=== PATIENT | male | born 1950 | race Caucasian/White ===

== ENCOUNTER → 2017-06-18 | Day surgery (SDC) | payer MEDICARE, BC ==
[~2017-06-18] MED LIST: Dextrose 5%-0.45% NaCl 1,000 ML IV SCH; Midazolam 1 MG/ML 2 ML SDV IV ONE; Midazolam 1 MG/ML 2 ML SDV ONE; Sodium Chloride 0.9% 10 ML Syringe FLUSH PRN; fentaNYL 100 MCG/2 ML SDV IV ONE; fentaNYL 100 MCG/2 ML SDV ONE
--- NOTE | 2017-06-18 09:41 | OR ---
DATE: 06/18/2017 PROCEDURES: Total colonoscopy, narrow-band imaging, snare polypectomy, and multiple pinch biopsies. INSTRUMENT USED: CF-H180 AL Olympus video colonoscope. PREMEDICATIONS: Fentanyl 100 mcg intravenous, Versed 4 mg intravenous. Nasal O2 cannula. The procedure was done under pulse oximetry, BP recording, and case monitor. INDICATION: Screening colonoscopic examination is done for detection of any polypoid lesions and removal, endoscopic hemostasis therapy if needed. DESCRIPTION OF PROCEDURE: Initial rectal exam was unremarkable. Rigid anoscopy was normal. The colonoscope was passed with ease. In the proximal sigmoid colon, 1-cm sized, benign-appearing, pedunculated polyp was noted. NBI views were obtained. Photographs were taken. Snare polypectomy was done. The polyp was retrieved and sent for histopathology. Polypectomy site was found to be clean. The scope was passed with ease up to the ileocecal area. Photographs were taken of the cecum identified by prominent but benign-appearing ileocecal folds. NBI views were obtained. Multiple pinch biopsies were obtained from the prominent folds and sent for histopathology. No active bleeding was noted from any of the visualized areas at the commencement of the examination. No stricture. No vascular ectasia. No large isolated ulcerations seen. No evidence of diffuse inflammatory bowel disease in the form of friability, contact bleeding, or ulcerations. Probing the proximal sides of folds and flexures, using adequate distention and clearing up the stool material, withdrawal of the scope was made. Ebyik-lb-[id number] time over 6 minutes. No bleeding was noted from any of the visualized areas at the completion of examination. IMPRESSION: Colonic polyp. The patient tolerated the procedure well. [facility] /[id number]
== END ==
LOC: DL.ENDO 06:43
PROVIDERS: ATTEND Internal Medicine Gastroenterology
DX: Z12.11 Encounter for screening for malignant neoplasm of colon (principal); D12.5 Benign neoplasm of sigmoid colon; K63.5 Polyp of colon; E78.00 Pure hypercholesterolemia, unspecified; Z79.899 Other long term (current) drug therapy; Z83.79 Family history of other diseases of the digestive system
CPT/HCPCS: 45380; 45385; J2250; J3010; J7042

== ENCOUNTER 2020-02-10 07:20 | Day surgery (SDC) | payer MEDICARE, BC ==
[2020-02-10] MEDS ORDERED: Moxifloxacin 0.5% Ophth Soln 3 ML Bottle EYERT ONE (07:30)
[2020-02-10] MEDS ORDERED: Sodium Chloride 0.9% 10 ML Syringe FLUSH PRN (07:30)
[2020-02-10] MEDS ORDERED: Cataract Ophth Solution EYERT ONE (07:30)
[2020-02-10] MEDS ORDERED: Tropicamide 1% Ophth Soln 15 ML Bottle EYERT ONE (07:30)
[2020-02-10] MEDS ORDERED: Ondansetron 4 MG/2 ML SDV IVPUSH PRN (07:30)
[2020-02-10] MEDS ORDERED: Acetaminophen 325 MG Tab PO PRN (07:30)
[2020-02-10] MEDS ORDERED: Povidone-Iodine 5% Sterile Ophth Soln 30 ML Bottle EYERT ONE ×2 (07:30→09:44)
[2020-02-10] MEDS ORDERED: Proparacaine 0.5% Ophth Soln 15 ML Bottle EYERT ONE (07:30)
[2020-02-10] MEDS ORDERED: Phenylephrine 10% Ophth Soln 5 ML Bot EYERT PRN (07:30)
[2020-02-10] MEDS ORDERED: Timolol Maleate 0.5% Ophth Soln 5 ML Bottle EYERT ONE (07:30)
[2020-02-10] MEDS ORDERED: Lidocaine 1% 30 ML SDV ONE (09:44)
[2020-02-10] MEDS ORDERED: Tetracaine HCl/PF 0.5% 4 ML Bottle EYERT ONE (09:44)
[2020-02-10] MEDS ORDERED: Apraclonidine 0.5% Ophth Soln 5 ML Bot EYERT ONE (09:44)
[2020-02-10] MEDS ORDERED: Vancomycin 500 MG SDV EYERT ONE (09:45)
[2020-02-10] MEDS ORDERED: Chondroitin Sulfate/Hyaluronate Sodium Ophth Inj 0.75 ML Syringe EYERT ONE (09:45)
[2020-02-10] MEDS ORDERED: Balanced Salt Solution Ophth Irrig 500 ML Bottle IOCULAR ONE (09:45)
[2020-02-10] MEDS ORDERED: Phenylephrine 10% Ophth Soln 5 ML Bot EYERT ONE (09:45)
[2020-02-10] MEDS ORDERED: Diclofenac Sodium 0.1% Ophth Soln 5 ML Bottle EYERT ONE (09:45)
[2020-02-10] MEDS ORDERED: Dexamethasone 4 MG/ML SDV IOCULAR ONE (09:56)
--- NOTE | 2020-02-11 07:48 | OR ---
DATE: 02/10/2020 PREOPERATIVE DIAGNOSIS: Visually significant mixed cataract, right eye. POSTOPERATIVE DIAGNOSIS: Visually significant mixed cataract, right eye. PROCEDURE: Extracapsular cataract extraction with intraocular lens implant, right eye. ANESTHESIA: Topical/local MAC. COMPLICATIONS: None. INDICATION: Mr. Tovar was seen in the clinic. Examination revealed visually significant mixed cataract. I explained options, offered cataract surgery, and I explained risks, including, but not limited to, infection, retinal detachment, loss of vision, need for additional surgery, and risks associated with anesthesia. We discussed implant options. He has requested a monofocal implant. We discussed refractive targets and he requested targeting mild myopia. He understands that he will likely need glasses for some activities especially near work. OPERATIVE DESCRIPTION: After informed consent was obtained and the risks, benefits, and alternatives were explained, the patient was brought to the operative suite and topical anesthesia was administered. The patient was then prepped and draped in the sterile fashion and attention was placed on the right eye. A sterile lid speculum was placed into the right eye to allow operative exposure. A full-thickness paracentesis was made in the temporal portion of the operative eye. Preservative-free lidocaine 0.1 mL was injected into the anterior chamber followed by viscoelastic. A full-thickness corneal incision was then made into the anterior chamber. A bent needle cystotome was used to create a small jeanne in the anterior capsule. The capsulorrhexis forceps was then used to create a 360-degree curvilinear capsulorrhexis. The nucleus was then removed using a phacoemulsification handpiece and the remaining cortical material was then removed with irrigation and aspiration handpiece. Following removal of the cortical material, the capsular bag was then inspected and noted to be free of any holes or tears. Viscoelastic was then injected into the capsular bag and the intraocular lens was inserted into the capsular bag. The viscoelastic material was then removed from both the anterior and posterior chambers and from behind the IOL. The lens and capsular bag were then reinspected. The IOL was well centered and the capsular bag intact. The wound and paracentesis sites were inspected and hydrated with balanced saline solution. Both were found to be self- sealing. The intraocular pressure was assessed digitally and found to be within normal range. A good red reflex was noted at the completion of the procedure. No complications occurred during the operation. At the completion of the procedure, Bing Enrique and Iopidine drops were placed into the operative eye. A sterile eye shield was placed over the operative eye and the patient was transported to the postoperative recovery area having tolerated the procedure well. Postoperative instructions were given along with a postoperative appointment. The patient was advised to call with any questions or concerns. [facility] /[id number]
== END 2020-02-10 11:05 | disposition home or self-care (01) ==
LOC: DL.SDS 07:20
PROVIDERS: ATTEND Ophthalmology
DX: H25.811 Combined forms of age-related cataract, right eye (principal); E78.5 Hyperlipidemia, unspecified; Z98.890 Other specified postprocedural states; Z79.899 Other long term (current) drug therapy; Z88.8 Allergy status to other drugs, medicaments and biological substances
CPT/HCPCS: 00142; J1100; J2001; J3370; V2632

== ENCOUNTER 2020-02-17 07:22 | Day surgery (SDC) | payer MEDICARE, BC ==
[~2020-02-17 07:22] MED LIST changes: -Dextrose 5%-0.45% NaCl 1,000 ML IV SCH; -Midazolam 1 MG/ML 2 ML SDV IV ONE; -Midazolam 1 MG/ML 2 ML SDV ONE; +Proparacaine 0.5% Ophth Soln 15 ML Bottle EYELF SCH; -Sodium Chloride 0.9% 10 ML Syringe FLUSH PRN; -fentaNYL 100 MCG/2 ML SDV IV ONE; -fentaNYL 100 MCG/2 ML SDV ONE
[2020-02-17] MEDS ORDERED: Dexamethasone 4 MG/ML SDV IV ONE (07:23)
[2020-02-17] MEDS ORDERED: Midazolam 1 MG/ML 2 ML SDV IV ONE (07:23)
[2020-02-17] MEDS ORDERED: Sodium Chloride 0.9% 10 ML Syringe IV ONE (07:23)
[2020-02-17] MEDS ORDERED: Acetaminophen 325 MG Tab PO PRN (07:30)
[2020-02-17] MEDS ORDERED: Sodium Chloride 0.9% 10 ML Syringe FLUSH PRN (07:30)
[2020-02-17] MEDS ORDERED: Povidone-Iodine 5% Sterile Ophth Soln 30 ML Bottle EYELF ONE ×2 (07:30→08:35)
[2020-02-17] MEDS ORDERED: Ondansetron 4 MG/2 ML SDV IVPUSH PRN (07:30)
[2020-02-17] MEDS ORDERED: Timolol Maleate 0.5% Ophth Soln 5 ML Bottle EYELF ONE (07:30)
[2020-02-17] MEDS ORDERED: Tropicamide 1% Ophth Soln 15 ML Bottle EYELF ONE (07:30)
[2020-02-17] MEDS ORDERED: Moxifloxacin 0.5% Ophth Soln 3 ML Bottle EYELF ONE (07:30)
[2020-02-17] MEDS ORDERED: Proparacaine 0.5% Ophth Soln 15 ML Bottle EYELF SCH (07:30)
[2020-02-17] MEDS ORDERED: Cataract Ophth Solution EYELF ONE (07:30)
[2020-02-17] MEDS ORDERED: Phenylephrine 10% Ophth Soln 5 ML Bot EYELF ONE (07:30)
[2020-02-17] MEDS ORDERED: Tetracaine HCl/PF 0.5% 4 ML Bottle EYELF ONE (08:34)
[2020-02-17] MEDS ORDERED: Lidocaine 1% 30 ML SDV ONE (08:34)
[2020-02-17] MEDS ORDERED: Apraclonidine 0.5% Ophth Soln 5 ML Bot EYELF ONE (08:35)
[2020-02-17] MEDS ORDERED: Dexamethasone/Neomycin/Polymyxin B Ophth Oint 3.5 GM Tube EYELF ONE (08:36)
[2020-02-17] MEDS ORDERED: Diclofenac Sodium 0.1% Ophth Soln 5 ML Bottle EYELF ONE (08:36)
[2020-02-17] MEDS ORDERED: Balanced Salt Solution Ophth Irrig 500 ML Bottle IOCULAR ONE (08:36)
[2020-02-17] MEDS ORDERED: Chondroitin Sulfate/Hyaluronate Sodium Ophth Inj 0.75 ML Syringe EYELF ONE (08:37)
[2020-02-17] MEDS ORDERED: Vancomycin 500 MG SDV EYELF ONE (08:37)
--- NOTE | 2020-02-22 07:02 | OR ---
DATE: 02/17/2020 PREOPERATIVE DIAGNOSIS: Visually significant mixed cataract, left eye. POSTOPERATIVE DIAGNOSIS: Visually significant mixed cataract, left eye. PROCEDURE: Extracapsular cataract extraction with intraocular lens implant, left eye. ANESTHESIA: Topical/local MAC. COMPLICATIONS: None. INDICATION: Mr. Tovar was seen in the clinic with complaints of blurred vision. The examination revealed visually significant mixed cataract. I explained options, offered cataract surgery, and I explained risks, including, but not limited to, infection, retinal detachment, loss of vision, need for additional surgery, and risks associated with anesthesia. We discussed implant options. He has requested a monofocal implant. He understands that he may need glasses following surgery. He has voiced understanding and wished to proceed. OPERATIVE DESCRIPTION: After informed consent was obtained and the risks, benefits, and alternatives were explained, the patient was brought to the operative suite and topical anesthesia was administered. The patient was then prepped and draped in the sterile fashion and attention was placed on the left eye. A sterile lid speculum was placed into the left eye to allow operative exposure. A full-thickness paracentesis was made in the temporal portion of the operative eye. Preservative-free lidocaine 0.1 mL was injected into the anterior chamber followed by viscoelastic. A full-thickness corneal incision was then made into the anterior chamber. A bent needle cystotome was used to create a small jeanne in the anterior capsule. The capsulorrhexis forceps was then used to create a 360-degree curvilinear capsulorrhexis. The nucleus was then removed using a phacoemulsification handpiece and the remaining cortical material was then removed with irrigation and aspiration handpiece. Following removal of the cortical material, the capsular bag was then inspected and noted to be free of any holes or tears. Viscoelastic was then injected into the capsular bag and the intraocular lens was inserted into the capsular bag. The viscoelastic material was then removed from both the anterior and posterior chambers and from behind the IOL. The lens and capsular bag were then reinspected. The IOL was well centered and the capsular bag intact. The wound and paracentesis sites were inspected and hydrated with balanced saline solution. Both were found to be self- sealing. The intraocular pressure was assessed digitally and found to be within normal range. A good red reflex was noted at the completion of the procedure. No complications occurred during the operation. At the completion of the procedure, Bing Enrique, and Iopidine drops were placed into the operative eye. A sterile eye shield was placed over the operative eye and the patient was transported to the postoperative recovery area having tolerated the procedure well. Postoperative instructions were given along with a postoperative appointment. The patient was advised to call with any questions or concerns. [facility] /[id number]
== END 2020-02-17 09:48 | disposition home or self-care (01) ==
LOC: DL.SDS 07:22
PROVIDERS: ATTEND Ophthalmology
DX: H25.812 Combined forms of age-related cataract, left eye (principal); E78.5 Hyperlipidemia, unspecified; Z79.82 Long term (current) use of aspirin; Z79.899 Other long term (current) drug therapy; Z88.8 Allergy status to other drugs, medicaments and biological substances
CPT/HCPCS: A9270-GY; J1100; J2001; J2250; J3370; V2632

== ENCOUNTER 2022-05-14 06:45 | Day surgery (SDC) | payer MEDICARE, BC ==
[~2022-05-14 06:45] MED LIST changes: +Dextrose 5%-0.45% NaCl 1,000 ML IV SCH; +Midazolam 1 MG/ML 2 ML SDV ONE; -Proparacaine 0.5% Ophth Soln 15 ML Bottle EYELF SCH; +Sodium Chloride 0.9% 10 ML Syringe FLUSH PRN; +Sodium Chloride 0.9% 10 ML Syringe FLUSH SCH; +fentaNYL 100 MCG/2 ML SDV ONE
[2022-05-14] MEDS ORDERED: fentaNYL 100 MCG/2 ML SDV IV ONE ×3 (06:46→08:26)
[2022-05-14] MEDS ORDERED: Midazolam 1 MG/ML 2 ML SDV IV ONE ×3 (06:46→08:28)
== END 2022-05-14 10:18 | disposition home or self-care (01) ==
LOC: DL.ENDO 06:45
PROVIDERS: ATTEND Internal Medicine Gastroenterology
DX: D64.9 Anemia, unspecified (principal); E78.00 Pure hypercholesterolemia, unspecified; N52.9 Male erectile dysfunction, unspecified; Z88.8 Allergy status to other drugs, medicaments and biological substances
CPT/HCPCS: 87077; 88305; J2250; J3010; J7042

== ENCOUNTER 2022-05-15 05:42 | Day surgery (SDC) | payer MEDICARE, BC ==
[~2022-05-15 05:42] MED LIST changes: -Midazolam 1 MG/ML 2 ML SDV ONE; -fentaNYL 100 MCG/2 ML SDV ONE
[2022-05-15] MEDS ORDERED: fentaNYL 100 MCG/2 ML SDV IV ONE ×3 (05:43→07:02)
[2022-05-15] MEDS ORDERED: Midazolam 1 MG/ML 2 ML SDV IV ONE ×6 (05:43→07:10)
[2022-05-15] MEDS ORDERED: Midazolam 1 MG/ML 2 ML SDV ONE (06:10)
[2022-05-15] MEDS ORDERED: fentaNYL 100 MCG/2 ML SDV ONE (06:11)
== END 2022-05-15 09:25 | disposition home or self-care (01) ==
LOC: DL.ENDO 05:42
PROVIDERS: ATTEND Internal Medicine Gastroenterology
DX: C18.0 Malignant neoplasm of cecum (principal); K57.30 Diverticulosis of large intestine without perforation or abscess without bleeding; K63.5 Polyp of colon; K64.8 Other hemorrhoids; D64.9 Anemia, unspecified; E78.00 Pure hypercholesterolemia, unspecified
CPT/HCPCS: 45380; 88305; 88341; 88342; J2250; J3010; J7042

== ENCOUNTER 2023-07-09 05:35 | Day surgery (SDC) | payer MEDICARE, BC ==
[2023-07-09] MEDS ORDERED: fentaNYL 100 MCG/2 ML SDV IV ONE (05:36)
[2023-07-09] MEDS ORDERED: Midazolam 1 MG/ML 2 ML SDV IV ONE (05:36)
[2023-07-09] MEDS ORDERED: Midazolam 1 MG/ML 2 ML SDV ONE (06:10)
[2023-07-09] MEDS ORDERED: fentaNYL 100 MCG/2 ML SDV ONE (06:10)
[2023-07-09] MEDS: Dextrose 5%-0.45% NaCl 1,000 ML IV SCH (06:12)
[2023-07-09] MEDS: fentaNYL 100 MCG/2 ML SDV IV ONE ×2 (06:55→06:56)
[2023-07-09] MEDS: Midazolam 1 MG/ML 2 ML SDV IV ONE ×5 (06:56→07:04)
== END 2023-07-09 09:25 | disposition home or self-care (01) ==
LOC: DL.ENDO 05:35
PROVIDERS: ATTEND Internal Medicine Gastroenterology
DX: Z12.11 Encounter for screening for malignant neoplasm of colon (principal); K64.8 Other hemorrhoids; K57.30 Diverticulosis of large intestine without perforation or abscess without bleeding; Z90.49 Acquired absence of other specified parts of digestive tract
CPT/HCPCS: 45380; 88305; J2250; J3010; J7042